=== PATIENT | female | born 1940 | race Caucasian/White ===

== ENCOUNTER 2020-07-31 14:50 | Emergency (ER) | payer MEDICARE ==
[~2020-07-31] VITALS: Ht 165 cm; Wt 68.0 kg
--- NOTE | 2020-07-31 16:07 | ED Lower Extremity ---
General Chief Complaint: Lower Extremity Stated Complaint: BILAT LEG SWELLING Nursing Triage Note: PT AMBULATES TO ROOM 5 PT CO OF LOWER EXT SWELLING, AND DISCOMFORT BEFORE TAKING TYLENOL. PT CO OF ANKLES AND KNEE DISCOMFORT BILAT PRIOR TO TAKING TYLENOL TODAY PT STATES STARTED 07/10. HAS HAD BILAT ULTRA SOUND TO LOWER EXT AND CT CHEST BY HER DR LAST WEEK. Nursing Sepsis Screen: No Definite Risk Source: patient Exam Limitations: no limitations History of Present Illness Date Seen by Provider: Jul 31, 2020 Time Seen by Provider: 15:28 Initial Comments Patient presents ER by private conveyance with her daughter in chief complaint that she has been having pain for the past month in her knees and ankles making it very difficult for her to walk on them as well as swelling in the joints bilaterally. No fever. No history of coronary disease, stroke, peripheral arterial disease. No known history of arthritis. The patient is very physically active out cutting trees and working around the yard frequently. She is been using Tylenol which helps some with the pain. She went to her primary care doctor who had several labs drawn as well as ultrasound of her legs showing no clots. She had a CT angiogram urinalysis all of which were unremarkable. ESR was elevated at 58. Patient states about a month prior to this she is having proximal metacarpal phalangeal joint pain especially in her thumb starting with her right hand which she is dominant and also in her left hand afterwards. She saw her primary care doctor then and was started on diclofenac. This made her hands better but then her knees inflamed so she thought maybe this was the medication and stopped taking it. Now her knees and ankles are both inflamed. No history of gout, rheumatoid arthritis, fevers, rashes or known tick infections. She denies a history of STDs. Her daughter says they came to the ER today because they were not getting answers at her primary care clinic and she wants to know what is causing it and see if they can get relief. She rates her pain as mild presently. Allergies and Home Medications Allergies Coded Allergies: No Known Drug Allergies (Unverified , 07/31/20) Home Medications Meloxicam 15 Mg Tablet, 15 MG PO DAILY Prescribed by: ISAIAH HUNTER on 07/31/201616 Pantoprazole Sodium 40 Mg Tablet., 40 MG PO DAILY Prescribed by: ISAIAH HUNTER on 3/5/21 1617 Patient Home Medication List Home Medication List Reviewed: Yes Review of Systems Constitutional: No chills, No diaphoresis EENTM: No ear discharge, No ear pain Respiratory: No cough, No phlegm, No short of breath Cardiovascular: No Hx of Intervention, No palpitations Gastrointestinal: No abdominal pain, No nausea, No vomiting Genitourinary: No discharge, No dysuria Control/STD Prophylaxis: None Musculoskeletal: see HPI; No back pain; joint pain All Other Systems Reviewed Negative Unless Noted: Yes Past Fsqdgmt-Wrzmbu-Vpvway Hx Patient Social History Alcohol Use: Denies Use Smoking Status: Never a Smoker Recent Infectious Disease Expo: No Recent Hopitalizations: No Past Medical History Surgeries: No Respiratory: No Cardiac: No Neurological: No Genitourinary: No Gastrointestinal: No Musculoskeletal: No Endocrine: Yes Hyperthyroidism HEENT: No Cancer: No Psychosocial: No Integumentary: No Blood Disorders: No Physical Exam Vital Signs Vital Signs - First Documented 07/31/20 14:55 Temp 36.9 Pulse 86 Resp 18 B/P (MAP) 131/69 (89) O2 Delivery Room Air Capillary Refill : Less Than 3 Seconds Height, Weight, BMI Height: '" Weight: lbs. oz. kg; 24.00 BMI Method: General Appearance: WD/WN, no apparent distress HEENT: PERRL/EOMI, pharynx normal Neck: full range of motion, normal inspection Cardiovascular: normal peripheral pulses, regular rate, rhythm Respiratory: no respiratory distress, no accessory muscle use Gastrointestinal: normal bowel sounds, non tender Hips: bilateral hip non-tender, bilateral hip normal inspection, bilateral hip normal range of motion Legs: bilateral leg non-tender, bilateral leg normal inspection, bilateral leg normal range of motion Knees: bilateral knee non-tender, bilateral knee normal inspection, bilateral knee normal range of motion, bilateral knee no evidence of injury Ankles: bilateral ankle joint effusion, bilateral ankle limited range of motion (Mild), bilateral ankle pain Feet: bilateral foot non-tender, bilateral foot normal inspection, bilateral foot normal range of motion, bilateral foot no evidence of injury Neurologic/Psychiatric: alert, normal mood/affect, oriented x 3 Skin: normal color, warm/dry Progress/Results/Core Measures Results/Orders Lab Results Laboratory Tests Test 07/31/20 16:05 Range/Units White Blood Count 8.8 4.3-11.0 10^3/uL Red Blood Count 3.82 3.80-5.11 10^6/uL Hemoglobin 10.9 L 11.5-16.0 g/dL Hematocrit 34 L 35-52 % Mean Corpuscular Volume 89 80-99 fL Mean Corpuscular Hemoglobin 29 25-34 pg Mean Corpuscular Hemoglobin Concent 32 32-36 g/dL Red Cell Distribution Width 13.0 10.0-14.5 % Platelet Count 441 H 130-400 10^3/uL Mean Platelet Volume 8.9 L 9.0-12.2 fL Immature Granulocyte % (Auto) 1 % Neutrophils (%) (Auto) 62 42-75 % Lymphocytes (%) (Auto) 28 12-44 % Monocytes (%) (Auto) 8 0-12 % Eosinophils (%) (Auto) 1 0-10 % Basophils (%) (Auto) 1 0-10 % Neutrophils # (Auto) 5.4 1.8-7.8 10^3/uL Lymphocytes # (Auto) 2.5 1.0-4.0 10^3/uL Monocytes # (Auto) 0.7 0.0-1.0 10^3/uL Eosinophils # (Auto) 0.1 0.0-0.3 10^3/uL Basophils # (Auto) 0.0 0.0-0.1 10^3/uL Immature Granulocyte # (Auto) 0.1 0.0-0.1 10^3/uL Sodium Level 136 135-145 MMOL/L Potassium Level 3.7 3.6-5.0 MMOL/L Chloride Level 102 98-107 MMOL/L Carbon Dioxide Level 24 21-32 MMOL/L Anion Gap 10 5-14 MMOL/L Blood Urea Nitrogen 15 7-18 MG/DL Creatinine 1.08 0.60-1.30 MG/DL Estimat Glomerular Filtration Rate 49 BUN/Creatinine Ratio 14 Glucose Level 116 H 70-105 MG/DL Uric Acid 3.2 2.6-7.2 MG/DL Calcium Level 8.6 8.5-10.1 MG/DL Corrected Calcium 9.2 8.5-10.1 MG/DL Total Bilirubin 0.2 0.1-1.0 MG/DL Aspartate Amino Transf (AST/SGOT) 27 5-34 U/L Alanine Aminotransferase (ALT/SGPT) 33 0-55 U/L Alkaline Phosphatase 95 40-136 U/L C-Reactive Protein High Sensitivity 22.81 H 0.00-0.50 MG/DL Total Protein 7.2 6.4-8.2 GM/DL Albumin 3.2 3.2-4.5 GM/DL My Orders Orders - ISAIAH HUNTER Syphilis Antibody Screen (07/31/20 15:49) Tick Panel With Lyme Eia (07/31/20 15:49) Hs C Reactive Protein (07/31/20 15:49) Erythrocyte Sedimentation Rate (07/31/20 15:49) Cbc With Automated Diff (07/31/20 15:49) Comprehensive Metabolic Panel (07/31/20 15:49) Uric Acid (07/31/20 15:49) Cyclic Citrullinated Pept Ccp (07/31/20 15:49) Ra Factor (Rheumatoid Factor) (07/31/20 15:49) Ankle, Left, 3 Views (07/31/20 16:12) Ankle, Right, 3 Views (07/31/20 16:12) Vital Signs/I&O 07/31/20 14:55 Temp 36.9 Pulse 86 Resp 18 B/P (MAP) 131/69 (89) O2 Delivery Room Air Blood Pressure Mean: 89 Progress Progress Note : Time: 16:11 Progress Note Plan to get CRP, ESR, rheumatoid factor, anticyclic citrulline peptide. X-ray bilateral ankles. She had an elevated ESR of 58 so an inflammatory polyarteritis with differential including rheumatoid arthritis, SLE or other vasculitides. Heavily leaning towards rheumatoid arthritis. Could also just be osteoarthritis. Patient declined needing for pain. After her labs come back if it does indeed appear to be rheumatoid arthritis then her primary care team can start her on steroids if the Mobic is not helping. Diagnostic Imaging Diagonstic Imaging: Xray Plain Films/CT/US/NM/MRI: ankle (Bilateral) Comments NAME: ALEXIAARELIS [facility] REC#: [id number] PT STATUS: REG ER : 1940 PHYSICIAN: ISAIAH HUNTER MD ADMIT DATE: 07/31/20/ER Signed Date of Exam:07/31/20 ANKLE, RIGHT, 3 VIEWS Indication: Pain and swelling. Findings: Medial, lateral and posterior malleoli intact. No fracture, dislocation or acute periosteal reaction. No opaque foreign body. No soft tissue gas. Impression: No acute-appearing abnormality. Dictated by: Dictated on workstation # [id number] Dict: 07/31/207 Trans: 07/31/201658 CV [id number] Interpreted by: JENNA BHATT Electronically signed by: JENNA BHATT 07/31/201658 [facility] [place], [place] NAME: ARELIS H[facility] REC#: [id number] PT STATUS: REG ER : 1940 PHYSICIAN: ISAIAH HUNTER MD ADMIT DATE: 07/31/20/ER Signed Date of Exam:07/31/20 ANKLE, LEFT, 3 VIEWS Indication: Pain and swelling. Three view left ankle showed no fracture, dislocation, bony destructive process or acute periosteal reaction. The articular surface is smooth. No widening of the mortise. Impression: Unremarkable 3 view left ankle Dictated by: Dictated on workstation # [id number] Dict: 07/31/205 Trans: 07/31/201658 CV [id number] Interpreted by: JENNA BHATT Electronically signed by: JENNA BHATT 07/31/201658 Reviewed: Reviewed by Me Departure Impression Primary Impression: Suspected rheumatoid arthritis Disposition: 01 HOME, SELF-CARE Condition: Stable Departure-Patient Inst. Decision time for Depature: 17:11 Referrals: NO,LOCAL PHYSICIAN (PCP/Family) Primary Care Physician Patient Instructions: Rheumatoid Arthritis (DC) Add. Discharge Instructions: You have an arthritis and I suspect it could be rheumatoid arthritis since you have inflammatory markers. Put you on Mobic 1 capsule daily. Typically people take in the morning so is most effective throughout the day. You can continue to take Tylenol up to 1000 mg every 8 hours as necessary for pain. Topical creams such as icy hot, Biofreeze or creams with capsaicin oil are helpful applied directly over the joints that are hurting. The rest your labs should be back by next Monday and you should follow-up with your primary care doctor to review these lab results. If you are indeed having rheumatoid arthritis and your symptoms or not improving with Mobic then you can consider steroids through your primary team. All discharge instructions reviewed with patient and/or family. Voiced understanding. Scripts Pantoprazole Sodium (Pantoprazole Sodium) 40 Mg Tablet.dr 40 MG PO DAILY for 14 Days, #14 TAB 0 Refills Prov: ISAIAH HUNTER 07/31/20 Meloxicam (Mobic) 15 Mg Tablet 15 MG PO DAILY for 14 Days, #14 TAB 0 Refills Prov: ISAIAH HUNTER 07/31/20 ISAIAH HUNTER Jul 31, 2020 16:07
[2020-07-31 16:14] LABS: BASOPHILS % (AUTO) 1 % (0-10); EOSINOPHILS # (AUTO) 0.1 10^3/uL (0.0-0.3); EOSINOPHILS % (AUTO) 1 % (0-10); HEMATOCRIT 34 % (35-52); HEMOGLOBIN 10.9 g/dL (11.5-16.0); LYMPHOCYTES # (AUTO) 2.5 10^3/uL (1.0-4.0); LYMPHOCYTES % (AUTO) 28 % (12-44); MEAN CORPUSCULAR HEMOGLOBIN 29 pg (25-34); MEAN CORPUSCULAR HGB CONC 32 g/dL (32-36); MEAN CORPUSCULAR VOLUME 89 fL (80-99); MEAN PLATELET VOLUME 8.9 fL (9.0-12.2); MONOCYTES # (AUTO) 0.7 10^3/uL (0.0-1.0); MONOCYTES % (AUTO) 8 % (0-12); NEUTROPHILS # (AUTO) 5.4 10^3/uL (1.8-7.8); NEUTROPHILS % (AUTO) 62 % (42-75); PLATELET COUNT 441 10^3/uL (130-400); WHITE BLOOD COUNT 8.8 10^3/uL (4.3-11.0)
[2020-07-31] MEDS ORDERED: PANT40TA52 PO (16:17)
[2020-07-31] MEDS ORDERED: MELO15TA14 PO (16:17)
[2020-07-31 16:23] LABS: ALBUMIN 3.2 GM/DL (3.2-4.5); POTASSIUM 3.7 MMOL/L (3.6-5.0)
[2020-07-31 16:24] LABS: CALCIUM 8.6 MG/DL (8.5-10.1)
[2020-07-31 16:26] LABS: TOTAL PROTEIN 7.2 GM/DL (6.4-8.2)
[2020-07-31 16:27] LABS: BILIRUBIN,TOTAL 0.2 MG/DL (0.1-1.0)
[2020-07-31 16:29] LABS: CREATININE SERUM 1.08 MG/DL (0.60-1.30)
[2020-07-31 16:32] LABS: URIC ACID 3.2 MG/DL (2.6-7.2)
--- NOTE | 2020-07-31 16:48 | Diagnostic Imaging Report ---
Indication: Pain and swelling. Findings: Medial, lateral and posterior malleoli intact. No fracture, dislocation or acute periosteal reaction. No opaque foreign body. No soft tissue gas. Impression: No acute-appearing abnormality. Dictated by: Dictated on workstation # [id number]
--- NOTE | 2020-07-31 16:49 | Diagnostic Imaging Report ---
Indication: Pain and swelling. Three view left ankle showed no fracture, dislocation, bony destructive process or acute periosteal reaction. The articular surface is smooth. No widening of the mortise. Impression: Unremarkable 3 view left ankle Dictated by: Dictated on workstation # [id number]
[2020-07-31 17:14] VITALS: BP 118/71
[2020-07-31 17:22] LABS: ERYTHROCYTE SEDIMENTATION RATE 95 MM/HR (0-30)
== END 2020-07-31 17:18 | disposition home or self-care (01) ==
LOC: ER 14:53
DX: M25.462 Effusion, left knee (principal); M25.461 Effusion, right knee; M25.472 Effusion, left ankle; M25.471 Effusion, right ankle
CPT/HCPCS: 36415; 73610; 80053; 84550; 85025; 85652; 86141; 86200; 86431; 86618; 86666; 86668; 86757; 86780